=== PATIENT | male | born 1975 | race African-American/Black ===

== ENCOUNTER 2017-04-06 09:16 | Emergency (ER) | payer SELFPAY ==
[2017-04-06] MEDS: ASPIRIN 81 MG CHEW TAB PO ONE (09:30)
[2017-04-06] MEDS: ASPIRIN 81 MG CHEW TAB ONE (09:31)
--- NOTE | 2017-04-06 09:40 | ED Physician Documentation ---
Chest Pain - HISTORIAN Historian: patient - HPI Stated Complaint: Chest Pain Chief Complaint: Chest Pain Onset: hours (1) Timing: sudden onset Duration: none Last known Well Date: 04/06/17 Last Known Well Time: 08:00 Last known Well Code/Unknown Code: Unknown Context: other (while driving ) Severity: mild Quality: dull, aching, sharp Chest Pain Radiation: arms, other (radiated from his left forearm to his upper arm and chest ) Chest Pain Signs/Symptoms: denies: nausea, vomiting, diaphoresis, cool extremities, dizziness, dyspnea, tachycardia Worsened By: nothing Relieved By: nothing Further Comments: yes (he reports approx one hour ago he was driving and talking on the phone states that he started to have a dull yet sharp pain on his left forearm and he notes that he felt "confused" but didnt loose track of time or where he was but he remembers feeling like he was overall confused due to possibly the fear of the pain . He states the pain then moved to his upper arm and over to his chest and he felt he should stop driving and find a hospital due to his hisotry of heart attacks (although he reports the pain is not the same as he remembers with his 2 IA's) He states for some reason in his head he was worried about a blood clot. He denies any history himself or from family of blood clots. reports the pain is resloved now) - ROS CONST: none SKIN/ENDO: none NEURO/PSYCH: denies: headache - PAST HX IA risk factors: hypertension (he was previously on HTN medication but did stop this medication. ) DVT/PE Risk Factors: none TAD/AAA risk factors: none Neuro deficit: none GI disease: none Lung disease: none Surgeries/Procedures: none Allergies/Adverse Reactions: Allergies Allergy/AdvReac Type Severity Reaction Status Date / Time No Known Allergies Allergy Unverified 04/06/17 09:24 Home Medications: Ambulatory Orders Medication Instructions Recorded Clopidogrel Bisulfate [Plavix] 75 mg PO DAILY 04/06/17 - SOCIAL HX Smoking History: cigarettes Alcohol Use: none Drug Use: none - FAMILY HX Family HX: none - VITAL SIGNS Vital Signs: Vital Signs Temp Pulse Resp BP Pulse Ox 97 H 18 124/84 99 04/06/17 09:29 04/06/17 09:20 04/06/17 09:20 04/06/17 09:29 - REVIEWED ASSESSMENTS Nursing Assessment Reviewed: Yes Vitals Reviewed: Yes ED Results Lab/Radiology - Radiology Radiology Impressions: Examination: Portable chest History: Evaluate lungs Comparison exam: None available Findings: Single view of the chest demonstrates a normal cardiac and mediastinal silhouette. Lung oneill without focal infiltrate. No blunting of the costophrenic margins. Osseous structures are appropriate for age. Impression: No acute pulmonary process. Electronically signed on Apr 06, 2017 10:07:[address] JUSTICE by: Darius Paze - Orders Orders: ED Orders Category Date Time Status Continuous EKG monitoring Q30M Care 04/06/17 09:29 Active Continuous Pulse Oximetry Q30M Care 04/06/17 09:[address] IV Lock 1T Care 04/06/17 09:29 Active CHEST 1 VIEW [RAD] Stat Exams 04/06/17 09:29 Ordered CBC/PLATELET/DIFF Routine Lab 04/06/17 09:30 Received CMP Routine Lab 04/06/17 09:30 Received CREATINE KINASE Routine Lab 04/06/17 09:30 Received D DIMER Stat Lab 04/06/17 09:30 Received PT-INR Stat Lab 04/06/17 09:30 Received TROPONIN I (cTnI) Stat Lab 04/06/17 09:30 Received Aspirin Med 04/06/17 09:27 Discontinued 324 mg .ROUTE .STK-MED ONE Aspirin Med 04/06/17 09:29 Once 324 mg PO NOW ONE EKG WITH COMPARISON Stat Ther 04/06/17 09:29 Ordered Chest Pain Physical Exam - EXAM General Appearance: no acute distress EENT: eye inspection normal Neck: nml inspection Respiratory: no resp. distress, chest non-tender, nml breath sounds, resp.distress CVS: reg. rate & rhythm, no murmur, no gallop, pulses equal Abdomen: soft, no organomegaly, normal bowel sounds, no distension, non-tender Skin: warm/dry, normal color Extremities: non-tender, normal range of motion, no evidence of injury, no edema Neuro: oriented X3, CN's nml as tested, motor nml, sensation nml, mood/affect nml Discharge Clincal Impression: Chest pain Qualifiers: Chest pain type: unspecified Qualified Code(s): R07.9 - Chest pain, unspecified Comments: Tylenol or Ibuprofen for pain Increase fluids Return to your PCP for your medications Follow up for work up due to history of IA Return to Er for any concerning symptoms Condition: Stable Disposition: 01 HOME, SELF-CARE Decision to Admit: NO Date of Decison to Admit: 04/06/17 Decision Time: 10:09
[2017-04-06 09:43] LABS: BASOPHILS % 0.5 (0.0-1.5); EOSINOPHILS % 1.2 % (0.0-6.8); MEAN CORPUSCULAR HEMOGLOBIN 25.2 pg (28.0-34.0); MEAN CORPUSCULAR VOLUME 81.5 fl (80.0-100.0); MONOCYTES % 3.6 % (0.0-11.0); NEUTROPHILS # 4.5 # k/uL (1.4-7.7)
[2017-04-06 09:58] LABS: eGFR (African) > 60; eGFR (Non-African) > 60
--- NOTE | 2017-04-06 10:17 | Diagnostic Imaging Report ---
[facility] [address] [facility] [id number] Report Submission Date: Apr 06, 2017 10:07:39 AM DIRECTOR OF SPORTS MEDICINE Patient Study Name: LONNY BARFIELD Date: Apr 06, 2017 9:50:12 AM DIRECTOR OF SPORTS MEDICINE Modality Type: CR Gender: M Description: CHEST : 71 Institution: [facility] Physician: BERNA TO Examination: Portable chest History: Evaluate lungs Comparison exam: None available Findings: Single view of the chest demonstrates a normal cardiac and mediastinal silhouette. Lung oneill without focal infiltrate. No blunting of the costophrenic margins. Osseous structures are appropriate for age. Impression: No acute pulmonary process. Electronically signed on Apr 06, 2017 10:07:39 AM DIRECTOR OF SPORTS MEDICINE by: Darius ROTHMAN
[2017-04-06 10:22] VITALS: BP 110/77
== END 2017-04-06 10:20 | disposition home or self-care (01) ==
LOC: ED 09:16
DX: R07.9 Chest pain, unspecified (principal)
CPT/HCPCS: 71010; 80053; 82550; 84484; 85025; 85379; 85610; 99282; S1016